=== PATIENT | male | born 1955 | race Caucasian/White ===

== ENCOUNTER 2017-08-30 22:17 | Inpatient (IN) | payer MEDICAID ==
[~2017-08-30] VITALS: Ht 165.1 cm; Wt 50.3 kg
[2017-08-30] MEDS ORDERED: PLEASE ENTER HEIGHT AND WEIGHT MC SCH (22:30)
[2017-08-30] MEDS ORDERED: methylPREDNISolone SOD SUCC 125 MG/2 ML IVP ONE (22:30)
[2017-08-30] MEDS ORDERED: SODIUM CHLORIDE FLUSH 10ML SYR IVF ONE (22:30)
[2017-08-30] MEDS ORDERED: SODIUM CHLORIDE 0.9% 1,000ML IVBOLUS ONE (22:30)
[2017-08-30] MEDS ORDERED: PLEASE ENTER ALLERGIES MC SCH ×2 (22:30)
[2017-08-30 22:43] LABS: HEMATOCRIT 34.1 % (39.2-51.8); HEMOGLOBIN 11.1 g/dL (13.7-18.0); WHITE BLOOD COUNT 11.2 x10^3/uL (3.4-10)
[2017-08-30 22:55] LABS: BLOOD UREA NITROGEN 34 mg/dL (7-18)
[2017-08-30 23:02] LABS: IS PT STATUS REG ER OR PRE ER? YES
[2017-08-30] MEDS ORDERED: ALBUTEROL SULFATE 2.5 MG/3 ML ONE (23:07)
[2017-08-30] MEDS ORDERED: methylPREDNISolone SOD SUCC 125 MG/2 ML ONE (23:13)
[2017-08-31] MEDS ORDERED: ALBUTEROL SULFATE 2.5 MG/3 ML NPPB ONE
[2017-08-31] MEDS ORDERED: AZITHROMYCIN 500 MG in SODIUM CHLORIDE 0.9% 250 ML IV ONE
[2017-08-31] MEDS ORDERED: ALBUTEROL/IPRATROPIUM 2.5MG/0.5MG, 3 ML NPPB PRN (01:30)
[2017-08-31] MEDS ORDERED: hydrALAzine 20 MG/ML, 1ML IVPush PRN (01:30)
[2017-08-31] MEDS ORDERED: GUAIFENESIN/DM 200-20MG, 10ML UDC PO PRN (01:30)
[2017-08-31] MEDS ORDERED: ONDANSETRON 2MG/ML, 2ML IVPush PRN (01:30)
[2017-08-31 01:47] VITALS: BP 125/81
[2017-08-31 02:00] VITALS: BP 125/81
[2017-08-31] MEDS: SODIUM CHLORIDE 0.9% 1,000 ML IV SCH ×2 (02:32→17:20)
[2017-08-31] MEDS: methylPREDNISolone SOD SUCC 125 MG/2 ML IVPush SCH ×4 (02:32→20:03)
[2017-08-31] MEDS: ENOXAPARIN 40 MG/0.4 ML SQ SCH (05:58)
[2017-08-31] MEDS ORDERED: GUAIFENESIN 200 MG TABLET PO SCH (06:00)
[2017-08-31] MEDS: ALBUTEROL/IPRATROPIUM 2.5MG/0.5MG, 3 ML NPPB SCH ×4 (07:12→19:16)
[2017-08-31 07:18] VITALS: BP 107/50
[2017-08-31] MEDS: AZITHROMYCIN 500 MG TABLET PO SCH (09:31)
[2017-08-31] MEDS: FLUTICASONE/VILANTEROL 200-25MCG/INH INH SCH (11:02)
[2017-08-31] MEDS: CEFTRIAXONE PMX 1GM/50ML 50 ML IV SCH (11:09)
[2017-08-31] MEDS: NICOTINE 14MG/24 HR PATCH.TD24 TD SCH (11:53)
[2017-08-31 15:43] VITALS: BP 119/61
[2017-08-31 18:35] VITALS: BP 116/57
[2017-08-31] MEDS: GUAIFENESIN ER 600 MG TABLET PO SCH (20:03)
[2017-09-01] MEDS ORDERED: FAMO-79 PO (00:11)
[2017-09-01] MEDS ORDERED: QUET25TA PO (00:11)
[2017-09-01] MEDS ORDERED: ACAM333T7 PO (00:11)
[2017-09-01] MEDS ORDERED: QUETIAPINE 25MG TABLET PO ONE (00:30)
[2017-09-01] MEDS: ACETAMINOPHEN 325 MG TABLET PO PRN (00:56)
[2017-09-01] MEDS: methylPREDNISolone SOD SUCC 125 MG/2 ML IVPush SCH (00:57)
[2017-09-01 01:24] VITALS: BP 123/63
[2017-09-01] MEDS: SODIUM CHLORIDE 0.9% 1,000 ML IV SCH (04:37)
[2017-09-01] MEDS: ENOXAPARIN 40 MG/0.4 ML SQ SCH (05:31)
[2017-09-01 05:42] LABS: HEMATOCRIT 30.1 % (39.2-51.8); HEMOGLOBIN 9.8 g/dL (13.7-18.0); WHITE BLOOD COUNT 11.7 x10^3/uL (3.4-10)
[2017-09-01 05:46] LABS: BLOOD UREA NITROGEN 25 mg/dL (7-18)
[2017-09-01 07:30] VITALS: BP 131/69
[2017-09-01] MEDS: ALBUTEROL/IPRATROPIUM 2.5MG/0.5MG, 3 ML NPPB SCH ×4 (07:44→20:00)
[2017-09-01] MEDS: GUAIFENESIN ER 600 MG TABLET PO SCH ×2 (08:46→20:38)
[2017-09-01] MEDS: FLUTICASONE/VILANTEROL 200-25MCG/INH INH SCH (08:46)
[2017-09-01] MEDS: FAMOTIDINE 20 MG TABLET PO SCH ×2 (08:47→20:38)
[2017-09-01] MEDS: ACAMPROSATE 333 MG TABLET.DR PO SCH ×3 (08:47→20:38)
[2017-09-01] MEDS: AZITHROMYCIN 500 MG TABLET PO SCH (08:47)
[2017-09-01] MEDS: NICOTINE 14MG/24 HR PATCH.TD24 TD SCH (11:00)
[2017-09-01] MEDS: CEFTRIAXONE PMX 1GM/50ML 50 ML IV SCH (11:19)
[2017-09-01 12:30] LABS: OCCBLD OBC PASS
[2017-09-01 12:44] VITALS: BP 129/55
[2017-09-01 19:25] VITALS: BP 144/81
[2017-09-01] MEDS: QUETIAPINE 25MG TABLET PO SCH (20:38)
[2017-09-02 02:19] VITALS: BP 128/71
[2017-09-02] MEDS: ENOXAPARIN 40 MG/0.4 ML SQ SCH (05:00)
[2017-09-02 05:55] LABS: HEMATOCRIT 36.3 % (39.2-51.8); HEMOGLOBIN 11.6 g/dL (13.7-18.0); WHITE BLOOD COUNT 12.1 x10^3/uL (3.4-10)
[2017-09-02 06:19] LABS: BLOOD UREA NITROGEN 24 mg/dL (7-18)
[2017-09-02 06:36] VITALS: BP 150/82
[2017-09-02] MEDS: ALBUTEROL/IPRATROPIUM 2.5MG/0.5MG, 3 ML NPPB SCH ×4 (07:00→20:45)
[2017-09-02] MEDS: GUAIFENESIN ER 600 MG TABLET PO SCH ×2 (09:51→21:39)
[2017-09-02] MEDS: FLUTICASONE/VILANTEROL 200-25MCG/INH INH SCH (09:51)
[2017-09-02] MEDS: FAMOTIDINE 20 MG TABLET PO SCH ×2 (09:51→21:39)
[2017-09-02] MEDS: CEFTRIAXONE PMX 1GM/50ML 50 ML IV SCH (09:51)
[2017-09-02] MEDS: AZITHROMYCIN 500 MG TABLET PO SCH (09:51)
[2017-09-02] MEDS: ACAMPROSATE 333 MG TABLET.DR PO SCH ×3 (09:51→21:39)
[2017-09-02] MEDS: ACETAMINOPHEN 325 MG TABLET PO PRN ×2 (09:56→17:29)
[2017-09-02] MEDS ORDERED: CEFD300C37 PO (10:25)
[2017-09-02] MEDS ORDERED: AZIT500T5 PO (10:25)
[2017-09-02] MEDS ORDERED: PRED20TA PO (10:25)
[2017-09-02] MEDS: NICOTINE 14MG/24 HR PATCH.TD24 TD SCH (11:33)
[2017-09-02 12:18] VITALS: BP 148/85
[2017-09-02] MEDS ORDERED: PNEUMOCOCCAL 23 VACCINE IM-VACC ONE (15:30)
[2017-09-02 19:05] VITALS: BP 144/77
[2017-09-02] MEDS: QUETIAPINE 25MG TABLET PO SCH (21:39)
[2017-09-03 00:52] VITALS: BP 131/77
[2017-09-03] MEDS: ENOXAPARIN 40 MG/0.4 ML SQ SCH (06:00)
[2017-09-03 06:35] VITALS: BP 146/80
[2017-09-03] MEDS: ALBUTEROL/IPRATROPIUM 2.5MG/0.5MG, 3 ML NPPB SCH ×3 (07:30→15:05)
[2017-09-03 07:36] LABS: HEMATOCRIT 32.1 % (39.2-51.8); HEMOGLOBIN 10.5 g/dL (13.7-18.0); WHITE BLOOD COUNT 7.8 x10^3/uL (3.4-10)
[2017-09-03 07:38] LABS: BLOOD UREA NITROGEN 23 mg/dL (7-18)
[2017-09-03] MEDS: FAMOTIDINE 20 MG TABLET PO SCH (09:31)
[2017-09-03] MEDS: FLUTICASONE/VILANTEROL 200-25MCG/INH INH SCH (09:31)
[2017-09-03] MEDS: GUAIFENESIN ER 600 MG TABLET PO SCH (09:32)
[2017-09-03] MEDS: AZITHROMYCIN 500 MG TABLET PO SCH (09:32)
[2017-09-03] MEDS: ACAMPROSATE 333 MG TABLET.DR PO SCH (09:32)
[2017-09-03] MEDS: CEFTRIAXONE PMX 1GM/50ML 50 ML IV SCH (10:30)
[2017-09-03] MEDS: NICOTINE 14MG/24 HR PATCH.TD24 TD SCH (12:42)
[2017-09-03 12:48] VITALS: BP_SYST 144; BP_SYST 158; BP_DIAS 77; BP_DIAS 83
[2017-09-03] MEDS ORDERED: CEFDINIR 300 MG CAPSULE PO SCH (21:00)
== END 2017-09-03 16:00 | disposition home or self-care (01) | DRG 189 ==
LOC: ED 23:54 → EDIP 08-31 00:26 → SUATTDRO 08-31 01:10 → 4EST 08-31 01:28
PROVIDERS: ADMIT Hospitalist; ATTEND Hospitalist
DX: J96.21 Acute and chronic respiratory failure with hypoxia (principal); Z99.81 Dependence on supplemental oxygen; E44.0 Moderate protein-calorie malnutrition; J44.1 Chronic obstructive pulmonary disease with (acute) exacerbation; Z68.1 Body mass index [BMI] 19.9 or less, adult; D64.9 Anemia, unspecified; F17.210 Nicotine dependence, cigarettes, uncomplicated; T38.0X5A Adverse effect of glucocorticoids and synthetic analogues, initial encounter; D72.829 Elevated white blood cell count, unspecified; F32.9 Major depressive disorder, single episode, unspecified; R79.89 Other specified abnormal findings of blood chemistry; R00.0 Tachycardia, unspecified; Z88.0 Allergy status to penicillin; Z87.01 Personal history of pneumonia (recurrent); Z71.6 Tobacco abuse counseling
CPT/HCPCS: 36415; 71010; 80048; 82040; 82272; 84484; 85025; 87040; 90732; 93005; 94640; 96361; 96374; 96375; J0456; J0696; J1650; J7620; J2930; J7030; J7050; J7512

== ENCOUNTER 2017-09-21 00:45 | Emergency (ER) | payer MEDICAID ==
[~2017-09-21] VITALS: Ht 165.1 cm; Wt 52.0 kg
[~2017-09-21 00:45] MED LIST: ACAM333T7 PO; AZIT500T5 PO; CEFD300C37 PO; FAMO-79 PO; PRED20TA PO; QUET25TA PO
[2017-09-21] MEDS ORDERED: ACETAMINOPHEN 500 MG TABLET ONE (00:58)
[2017-09-21] MEDS ORDERED: ACETAMINOPHEN 325 MG TABLET PO ONE (01:00)
[2017-09-21 02:52] VITALS: BP 129/77
== END 2017-09-21 02:56 | disposition home or self-care (01) ==
LOC: ED 01:12
DX: G43.C0 Periodic headache syndromes in child or adult, not intractable (principal); J44.9 Chronic obstructive pulmonary disease, unspecified; Z86.73 Personal history of transient ischemic attack (TIA), and cerebral infarction without residual deficits
CPT/HCPCS: 70450; 99284

== ENCOUNTER 2017-09-22 11:18 | Emergency (ER) | payer MEDICAID ==
[~2017-09-22] VITALS: Ht 165.1 cm; Wt 50.0 kg
[2017-09-22 12:03] LABS: BLOOD UREA NITROGEN 19 mg/dL (7-18); HEMOGLOBIN 11.4 g/dL (13.7-18.0); WHITE BLOOD COUNT 5.1 x10^3/uL (3.4-10)
[2017-09-22 12:14] LABS: IS PT STATUS REG ER OR PRE ER? YES
[2017-09-22 13:04] VITALS: BP 144/79
== END 2017-09-22 14:59 | disposition home or self-care (01) ==
LOC: ED 11:21
DX: J44.1 Chronic obstructive pulmonary disease with (acute) exacerbation (principal); D64.9 Anemia, unspecified; Z88.0 Allergy status to penicillin
CPT/HCPCS: 36415; 71010; 80048; 82040; 83880; 84484; 85025; 93005; 99285; J7512

== ENCOUNTER 2017-10-04 19:58 | Inpatient (IN) | payer MEDICAID ==
[~2017-10-04] VITALS: Ht 165.1 cm; Wt 54.0 kg
[2017-10-04] MEDS ORDERED: ALBUTEROL SULFATE 2.5 MG/3 ML ONE ×2 (20:04→22:10)
[2017-10-04] MEDS ORDERED: methylPREDNISolone SOD SUCC 125 MG/2 ML ONE (20:24)
[2017-10-04] MEDS ORDERED: SODIUM CHLORIDE FLUSH 10ML SYR IVF ONE (20:30)
[2017-10-04] MEDS ORDERED: ALBUTEROL SULFATE 2.5 MG/3 ML NPPB ONE ×2 (20:30→23:00)
[2017-10-04] MEDS ORDERED: SODIUM CHLORIDE 0.9% 1,000ML IVBOLUS ONE (20:30)
[2017-10-04 20:50] LABS: BLOOD UREA NITROGEN 21 mg/dL (7-18)
[2017-10-04] MEDS: methylPREDNISolone SOD SUCC 125 MG/2 ML IVPush SCH ×3 (20:59→23:30)
[2017-10-04 21:37] LABS: WHITE BLOOD COUNT 12.1 x10^3/uL (3.4-10)
[2017-10-04 22:18] LABS: ABG COLLECTION SITE LEFT RADIAL; COLLATERAL CIRCULATION TESTING NORMAL
[2017-10-04] MEDS ORDERED: ALBUTEROL/IPRATROPIUM 2.5MG/0.5MG, 3 ML NPPB ONE (22:30)
[2017-10-04] MEDS ORDERED: NS + 20MEQ KCL 1,000 ML IV SCH (23:27)
[2017-10-04] MEDS ORDERED: GUAIFENESIN/DM 200-20MG, 10ML UDC PO PRN (23:30)
[2017-10-04] MEDS ORDERED: ACETAMINOPHEN 325 MG TABLET PO PRN (23:30)
[2017-10-04] MEDS ORDERED: DOCUSATE 100 MG CAPSULE PO PRN (23:30)
[2017-10-04] MEDS ORDERED: ONDANSETRON 2MG/ML, 2ML IVPush PRN (23:30)
[2017-10-04] MEDS: AZITHROMYCIN 500 MG in SODIUM CHLORIDE 0.9% 250 ML IV SCH (23:30)
[2017-10-04] MEDS ORDERED: POLYETHYLENE GLYCOL 17 GM PACKET PO PRN (23:30)
[2017-10-05] MEDS ORDERED: ENOXAPARIN 40 MG/0.4 ML ONE (00:12)
[2017-10-05] MEDS ORDERED: CEFTRIAXONE PMX 1GM/50ML 50 ML ONE (00:12)
[2017-10-05] MEDS ORDERED: NS + 20MEQ KCL 1,000 ML IV ONE (00:12)
[2017-10-05] MEDS: ENOXAPARIN 40 MG/0.4 ML SQ SCH (00:21)
[2017-10-05] MEDS: CEFTRIAXONE PMX 1GM/50ML 50 ML IV SCH (00:21)
[2017-10-05 00:46] LABS: ABG COLLECTION SITE ARTERIAL LINE
[2017-10-05] MEDS: NICOTINE 7 MG/24 HR PATCH.TD24 TD SCH (00:59)
[2017-10-05] MEDS ORDERED: ALBUTEROL/IPRATROPIUM 2.5MG/0.5MG, 3 ML ONE (01:54)
[2017-10-05] MEDS: POTASSIUM CHLORIDE 20 MEQ in SODIUM CHLORIDE 0.9% 1,000 ML IV SCH (03:13)
[2017-10-05 03:19] VITALS: BP 134/67
[2017-10-05] MEDS ORDERED: ALBUTEROL/IPRATROPIUM 2.5MG/0.5MG, 3 ML NPPB PRN (04:30)
[2017-10-05 05:55] VITALS: BP 94/55
[2017-10-05] MEDS: ALBUTEROL/IPRATROPIUM 2.5MG/0.5MG, 3 ML NPPB SCH ×5 (06:55→22:00)
[2017-10-05] MEDS: methylPREDNISolone SOD SUCC 125 MG/2 ML IVPush SCH ×3 (08:01→19:43)
[2017-10-05] MEDS: PANTOPROZOLE 40MG TABLET PO SCH (08:01)
[2017-10-05 09:11] LABS: ABG COLLECTION SITE RIGHT RADIAL; COLLATERAL CIRCULATION TESTING NORMAL
[2017-10-05] MEDS ORDERED: FUROSEMIDE 20 MG/2 ML IV ONE (09:30)
[2017-10-05] MEDS: HYDROcodone/APAP 5/325 TABLET PO PRN ×2 (13:42→21:01)
[2017-10-05] MEDS: QUETIAPINE 25MG TABLET PO SCH (21:01)
[2017-10-06] MEDS: CEFTRIAXONE PMX 1GM/50ML 50 ML IV SCH ×2 (00:05→23:52)
[2017-10-06] MEDS: NICOTINE 7 MG/24 HR PATCH.TD24 TD SCH ×2 (00:05→23:53)
[2017-10-06] MEDS: ENOXAPARIN 40 MG/0.4 ML SQ SCH ×2 (00:05→23:52)
[2017-10-06] MEDS: POTASSIUM CHLORIDE 20 MEQ in SODIUM CHLORIDE 0.9% 1,000 ML IV SCH (00:07)
[2017-10-06] MEDS: methylPREDNISolone SOD SUCC 125 MG/2 ML IVPush SCH ×4 (01:26→21:09)
[2017-10-06] MEDS: AZITHROMYCIN 500 MG in SODIUM CHLORIDE 0.9% 250 ML IV SCH (01:27)
[2017-10-06 04:10] LABS: HEMATOCRIT 30.8 % (39.2-51.8); HEMOGLOBIN 9.9 g/dL (13.7-18.0); WHITE BLOOD COUNT 14.2 x10^3/uL (3.4-10)
[2017-10-06 04:19] LABS: ASPARTATE AMINO TRANSFERASE 10 U/L (15-37); BLOOD UREA NITROGEN 22 mg/dL (7-18)
[2017-10-06] MEDS: HYDROcodone/APAP 5/325 TABLET PO PRN ×4 (04:49→22:51)
[2017-10-06 04:57] VITALS: BP 124/107
[2017-10-06] MEDS: ALBUTEROL/IPRATROPIUM 2.5MG/0.5MG, 3 ML NPPB SCH ×5 (07:10→22:23)
[2017-10-06] MEDS: PANTOPROZOLE 40MG TABLET PO SCH (07:30)
[2017-10-06] MEDS ORDERED: LIDOCAINE 1%, 20ML ONE (08:56)
[2017-10-06] MEDS ORDERED: MIDAZOLAM 1 MG/ML, 5ML ONE (08:58)
[2017-10-06] MEDS ORDERED: FENTANYL PF 100 MCG/2ML ONE (08:58)
[2017-10-06] MEDS ORDERED: NALOXONE 1 MG/ML, 2ML ONE (08:59)
[2017-10-06] MEDS ORDERED: FLUMAZENIL 0.1 MG/1 ML, 5ML ONE (08:59)
[2017-10-06] MEDS: QUETIAPINE 25MG TABLET PO SCH (21:09)
[2017-10-07] MEDS: AZITHROMYCIN 500 MG in SODIUM CHLORIDE 0.9% 250 ML IV SCH (00:50)
[2017-10-07] MEDS: methylPREDNISolone SOD SUCC 125 MG/2 ML IVPush SCH ×4 (00:51→21:35)
[2017-10-07 04:00] VITALS: BP 102/51
[2017-10-07] MEDS: ALBUTEROL/IPRATROPIUM 2.5MG/0.5MG, 3 ML NPPB SCH ×5 (06:40→21:20)
[2017-10-07] MEDS: PANTOPROZOLE 40MG TABLET PO SCH (08:27)
[2017-10-07] MEDS: LEVOFLOXACIN/PMX 750MG/150ML 150 ML IV SCH (14:46)
[2017-10-07] MEDS: HYDROcodone/APAP 5/325 TABLET PO PRN ×2 (16:03→21:54)
[2017-10-07 19:00] VITALS: BP 138/78
[2017-10-07] MEDS: LORazepam 1MG TABLET PO PRN (21:50)
[2017-10-08] MEDS: ENOXAPARIN 40 MG/0.4 ML SQ SCH (00:23)
[2017-10-08 03:15] VITALS: BP 136/78
[2017-10-08] MEDS: methylPREDNISolone SOD SUCC 125 MG/2 ML IVPush SCH ×3 (04:03→13:19)
[2017-10-08 04:51] LABS: HEMATOCRIT 34.8 % (39.2-51.8); HEMOGLOBIN 11.3 g/dL (13.7-18.0); WHITE BLOOD COUNT 19.1 x10^3/uL (3.4-10)
[2017-10-08 06:40] LABS: DIFF TOTAL CELLS COUNTED 100 CELL DIFF
[2017-10-08 06:42] LABS: VERIFY COUNTS? YES
[2017-10-08 06:43] LABS: ANISOCYTOSIS 1+; POLYCHROMASIA 1+
[2017-10-08 06:57] VITALS: BP 114/60
[2017-10-08] MEDS: ALBUTEROL/IPRATROPIUM 2.5MG/0.5MG, 3 ML NPPB SCH ×4 (07:00→20:00)
[2017-10-08] MEDS: NICOTINE 7 MG/24 HR PATCH.TD24 TD SCH (08:35)
[2017-10-08] MEDS: PANTOPROZOLE 40MG TABLET PO SCH (08:37)
[2017-10-08 13:02] VITALS: BP 140/70
[2017-10-08] MEDS: LINEZOLID PMX 600MG/300ML 300 ML IV SCH (13:19)
[2017-10-08] MEDS: LEVOFLOXACIN/PMX 750MG/150ML 150 ML IV SCH (15:32)
[2017-10-08] MEDS: HYDROcodone/APAP 5/325 TABLET PO PRN (18:40)
[2017-10-08] MEDS: LORazepam 1MG TABLET PO PRN (18:40)
[2017-10-08 20:26] VITALS: BP 140/80
[2017-10-09] MEDS: LINEZOLID PMX 600MG/300ML 300 ML IV SCH ×2 (01:03→13:41)
[2017-10-09] MEDS: ENOXAPARIN 40 MG/0.4 ML SQ SCH ×2 (01:03→23:41)
[2017-10-09] MEDS: HYDROcodone/APAP 5/325 TABLET PO PRN ×4 (01:23→20:06)
[2017-10-09] MEDS: LORazepam 1MG TABLET PO PRN ×2 (01:23→20:23)
[2017-10-09 02:35] VITALS: BP_SYST 144; BP_SYST 153; BP_DIAS 81; BP_DIAS 89
[2017-10-09 05:25] LABS: HEMATOCRIT 32.8 % (39.2-51.8); HEMOGLOBIN 10.7 g/dL (13.7-18.0); WHITE BLOOD COUNT 12.4 x10^3/uL (3.4-10)
[2017-10-09] MEDS: ALBUTEROL/IPRATROPIUM 2.5MG/0.5MG, 3 ML NPPB SCH ×4 (07:00→20:40)
[2017-10-09 07:19] VITALS: BP 152/79
[2017-10-09] MEDS: PANTOPROZOLE 40MG TABLET PO SCH (08:04)
[2017-10-09] MEDS: predniSONE 50MG TABLET PO SCH (08:04)
[2017-10-09] MEDS: NICOTINE 7 MG/24 HR PATCH.TD24 TD SCH (08:07)
[2017-10-09 13:41] VITALS: BP 146/77
[2017-10-09] MEDS: LEVOFLOXACIN/PMX 750MG/150ML 150 ML IV SCH (15:58)
[2017-10-09 19:12] VITALS: BP 126/60
[2017-10-10] MEDS: HYDROcodone/APAP 5/325 TABLET PO PRN ×4 (01:36→21:15)
[2017-10-10] MEDS: LORazepam 1MG TABLET PO PRN ×3 (01:36→21:15)
[2017-10-10 01:38] VITALS: BP 121/63
[2017-10-10] MEDS: LINEZOLID PMX 600MG/300ML 300 ML IV SCH ×2 (01:45→14:54)
[2017-10-10] MEDS: ALBUTEROL/IPRATROPIUM 2.5MG/0.5MG, 3 ML NPPB SCH ×4 (07:00→17:59)
[2017-10-10 07:31] VITALS: BP 119/69
[2017-10-10 09:38] LABS: ABG COLLECTION SITE RIGHT RADIAL; COLLATERAL CIRCULATION TESTING NORMAL; HEMATOCRIT 35.4 % (39.2-51.8); HEMOGLOBIN 11.4 g/dL (13.7-18.0); WHITE BLOOD COUNT 10.4 x10^3/uL (3.4-10)
[2017-10-10 09:50] LABS: ASPARTATE AMINO TRANSFERASE 8 U/L (15-37); BLOOD UREA NITROGEN 26 mg/dL (7-18)
[2017-10-10] MEDS: PANTOPROZOLE 40MG TABLET PO SCH (10:32)
[2017-10-10] MEDS: predniSONE 50MG TABLET PO SCH (10:32)
[2017-10-10] MEDS: NICOTINE 7 MG/24 HR PATCH.TD24 TD SCH (10:32)
[2017-10-10 11:34] LABS: DIFF TOTAL CELLS COUNTED 100 CELL DIFF
[2017-10-10 11:38] LABS: VERIFY COUNTS? YES
[2017-10-10 11:40] LABS: ANISOCYTOSIS 1+; OVALOCYTES 1+; POLYCHROMASIA 1+
[2017-10-10 16:30] VITALS: BP 129/72
[2017-10-10] MEDS: LEVOFLOXACIN/PMX 750MG/150ML 150 ML IV SCH (16:48)
[2017-10-10 21:00] VITALS: BP 117/69
[2017-10-11] MEDS: ENOXAPARIN 40 MG/0.4 ML SQ SCH (00:19)
[2017-10-11 01:22] VITALS: BP 131/73
[2017-10-11] MEDS: LINEZOLID PMX 600MG/300ML 300 ML IV SCH ×2 (01:43→13:17)
[2017-10-11 05:18] LABS: HEMOGLOBIN 10.7 g/dL (13.7-18.0); WHITE BLOOD COUNT 10.9 x10^3/uL (3.4-10)
[2017-10-11 05:31] LABS: ASPARTATE AMINO TRANSFERASE 11 U/L (15-37); BLOOD UREA NITROGEN 27 mg/dL (7-18)
[2017-10-11 07:01] LABS: DIFF TOTAL CELLS COUNTED 100 CELL DIFF
[2017-10-11 07:06] LABS: ANISOCYTOSIS 1+; OVALOCYTES 1+; POLYCHROMASIA 1+; VERIFY COUNTS? YES
[2017-10-11] MEDS: ALBUTEROL/IPRATROPIUM 2.5MG/0.5MG, 3 ML NPPB SCH ×4 (07:45→20:00)
[2017-10-11] MEDS: NICOTINE 7 MG/24 HR PATCH.TD24 TD SCH (09:00)
[2017-10-11] MEDS: HYDROcodone/APAP 5/325 TABLET PO PRN ×4 (09:00→22:14)
[2017-10-11] MEDS: PANTOPROZOLE 40MG TABLET PO SCH (09:00)
[2017-10-11 11:11] VITALS: BP 128/75
[2017-10-11] MEDS ORDERED: LIDOCAINE 1%, 20ML ONE (12:04)
[2017-10-11 13:04] VITALS: BP 127/72
[2017-10-11] MEDS: LEVOFLOXACIN/PMX 750MG/150ML 150 ML IV SCH (16:37)
[2017-10-11] MEDS: LORazepam 1MG TABLET PO PRN ×2 (17:46→22:14)
[2017-10-11 20:27] VITALS: BP 129/73
[2017-10-12] MEDS: ENOXAPARIN 40 MG/0.4 ML SQ SCH ×2 (00:58→23:41)
[2017-10-12] MEDS: LINEZOLID PMX 600MG/300ML 300 ML IV SCH ×2 (01:00→14:09)
[2017-10-12 02:12] VITALS: BP 113/51
[2017-10-12] MEDS: HYDROcodone/APAP 5/325 TABLET PO PRN ×5 (06:05→22:06)
[2017-10-12] MEDS: LORazepam 1MG TABLET PO PRN ×2 (06:05→21:21)
[2017-10-12] MEDS: ALBUTEROL/IPRATROPIUM 2.5MG/0.5MG, 3 ML NPPB SCH ×4 (07:00→20:00)
[2017-10-12 07:10] VITALS: BP 133/80
[2017-10-12] MEDS: NICOTINE 7 MG/24 HR PATCH.TD24 TD SCH (08:30)
[2017-10-12] MEDS: PANTOPROZOLE 40MG TABLET PO SCH (08:30)
[2017-10-12] MEDS: morphine SULFATE 10 MG/ML, 1ML IVPush PRN ×2 (14:50→21:19)
[2017-10-12] MEDS: LEVOFLOXACIN/PMX 750MG/150ML 150 ML IV SCH (18:01)
[2017-10-12 19:37] VITALS: BP 125/65
[2017-10-13 01:55] VITALS: BP 131/75
[2017-10-13] MEDS: LINEZOLID PMX 600MG/300ML 300 ML IV SCH ×2 (02:36→12:52)
[2017-10-13] MEDS: HYDROcodone/APAP 5/325 TABLET PO PRN ×4 (02:36→23:33)
[2017-10-13] MEDS: morphine SULFATE 10 MG/ML, 1ML IVPush PRN ×2 (04:21→12:51)
[2017-10-13] MEDS: LORazepam 1MG TABLET PO PRN ×3 (04:27→18:01)
[2017-10-13 08:00] VITALS: BP 121/66
[2017-10-13] MEDS: ALBUTEROL/IPRATROPIUM 2.5MG/0.5MG, 3 ML NPPB SCH ×4 (09:05→20:30)
[2017-10-13] MEDS: PANTOPROZOLE 40MG TABLET PO SCH (09:18)
[2017-10-13] MEDS: NICOTINE 7 MG/24 HR PATCH.TD24 TD SCH (09:20)
[2017-10-13 14:00] VITALS: BP 121/76
[2017-10-13] MEDS: LEVOFLOXACIN/PMX 750MG/150ML 150 ML IV SCH (15:46)
[2017-10-13 19:00] VITALS: BP 121/61
[2017-10-13] MEDS: ENOXAPARIN 40 MG/0.4 ML SQ SCH (23:33)
[2017-10-14] MEDS: LINEZOLID PMX 600MG/300ML 300 ML IV SCH (01:09)
[2017-10-14 02:04] VITALS: BP 128/71
[2017-10-14] MEDS: HYDROcodone/APAP 5/325 TABLET PO PRN ×2 (03:34→13:51)
[2017-10-14] MEDS: morphine SULFATE 10 MG/ML, 1ML IVPush PRN ×4 (03:44→21:40)
[2017-10-14] MEDS: ALBUTEROL/IPRATROPIUM 2.5MG/0.5MG, 3 ML NPPB SCH ×4 (07:35→20:13)
[2017-10-14 07:37] VITALS: BP 121/80
[2017-10-14] MEDS: PANTOPROZOLE 40MG TABLET PO SCH (07:50)
[2017-10-14] MEDS: NICOTINE 7 MG/24 HR PATCH.TD24 TD SCH (07:50)
[2017-10-14] MEDS: LORazepam 1MG TABLET PO PRN ×2 (13:51→21:40)
[2017-10-14 14:01] VITALS: BP 116/69
[2017-10-14 20:04] VITALS: BP 136/74
[2017-10-14] MEDS: ENOXAPARIN 40 MG/0.4 ML SQ SCH (22:39)
[2017-10-15 01:49] VITALS: BP 129/79
[2017-10-15] MEDS: morphine SULFATE 10 MG/ML, 1ML IVPush PRN ×2 (05:17→20:18)
[2017-10-15] MEDS ORDERED: BUPIVACAINE/PF 0.5% ONE ×2 (07:05→13:20)
[2017-10-15] MEDS ORDERED: EPINEPHRINE 1 MG/ML, 1ML ONE ×2 (07:05→13:20)
[2017-10-15 07:12] VITALS: BP 132/76
[2017-10-15] MEDS: ALBUTEROL/IPRATROPIUM 2.5MG/0.5MG, 3 ML NPPB SCH ×4 (07:44→16:28)
[2017-10-15] MEDS: PANTOPROZOLE 40MG TABLET PO SCH (08:11)
[2017-10-15] MEDS: LORazepam 1MG TABLET PO PRN (08:12)
[2017-10-15] MEDS: NICOTINE 7 MG/24 HR PATCH.TD24 TD SCH (08:16)
[2017-10-15] MEDS ORDERED: MORPHINE SULFATE 4 MG/ML, 1ML ONE (10:52)
[2017-10-15] MEDS: MORPHINE SULFATE 4 MG/ML, 1ML IVPush PRN (10:57)
[2017-10-15] MEDS ORDERED: MIDAZOLAM 1 MG/ML, 2ML ONE (13:29)
[2017-10-15] MEDS ORDERED: FENTANYL PF 250 MCG/5ML ONE (13:29)
[2017-10-15] MEDS ORDERED: ALBUTEROL SULFATE 200 PUFFS/8.5 GR INH ONE (14:36)
[2017-10-15] MEDS ORDERED: ROCURONIUM 10 MG/ML,10ML ONE (14:36)
[2017-10-15] MEDS ORDERED: PROPOFOL 10 MG/ML, 20ML ONE (14:36)
[2017-10-15] MEDS ORDERED: SUCCINYLCHOLINE 20 MG/ML, 10ML ONE (14:36)
[2017-10-15] MEDS ORDERED: BUPIVACAINE/PF-EPI 0.25% 1:200K INFIL ONE (15:14)
[2017-10-15] MEDS ORDERED: TALC 30 GM AERO.PWD INTRAPL ONE (15:42)
[2017-10-15] MEDS ORDERED: FENTANYL PF 100 MCG/2ML ONE ×3 (16:30→17:53)
[2017-10-15] MEDS ORDERED: MIDAZOLAM 1 MG/ML, 5ML ONE (17:38)
[2017-10-15] MEDS: FENTANYL PF 100 MCG/2ML IV PRN ×3 (17:49→18:41)
[2017-10-15] MEDS: MIDAZOLAM 1 MG/ML, 2ML IV PRN ×2 (17:49→18:00)
[2017-10-15] MEDS ORDERED: HYDROmorphone 1 MG/ML, 1ML IV PRN (18:00)
[2017-10-15] MEDS ORDERED: hydrALAzine 20 MG/ML, 1ML IV PRN (18:00)
[2017-10-15] MEDS ORDERED: LABETALOL 5MG/ML, 20ML IV PRN (18:00)
[2017-10-15] MEDS ORDERED: MEPERIDINE/PF 50 MG/ML ONE (18:02)
[2017-10-15] MEDS ORDERED: PROPOFOL 100 ML IV PRN ×2 (18:30→20:33)
[2017-10-15] MEDS ORDERED: PHARMACY MAY ADJ FOR RENAL FX MC SCH (21:00)
[2017-10-15] MEDS ORDERED: LIDOCAINE-MPF 1%, 2ML ENDO PRN (21:00)
[2017-10-16] MEDS: ACETAMINOPHEN 500 MG TABLET PO SCH ×5 (00:19→23:20)
[2017-10-16] MEDS: ENOXAPARIN 40 MG/0.4 ML SQ SCH ×2 (00:19→16:00)
[2017-10-16] MEDS ORDERED: NOREPINEPHRINE 1 MG/ML, 4ML ONE (02:35)
[2017-10-16] MEDS ORDERED: NOREPINEPHRINE 4 MG in SODIUM CHLORIDE 0.9% 246 ML IV PRN (03:00)
[2017-10-16] MEDS ORDERED: SODIUM CHLORIDE 0.9% 1,000ML IVBOLUS ONE (03:00)
[2017-10-16] MEDS: ALBUTEROL/IPRATROPIUM 2.5MG/0.5MG, 3 ML NPPB SCH ×4 (03:31→18:29)
[2017-10-16 04:55] LABS: BLOOD UREA NITROGEN 19 mg/dL (7-18)
[2017-10-16 05:05] LABS: HEMATOCRIT 27.8 % (39.2-51.8); HEMOGLOBIN 9.1 g/dL (13.7-18.0); WHITE BLOOD COUNT 15.2 x10^3/uL (3.4-10)
[2017-10-16 05:43] LABS: ABG COLLECTION SITE RIGHT RADIAL; COLLATERAL CIRCULATION TESTING NORMAL
[2017-10-16] MEDS: OXYcodone IR 5MG TABLET PO PRN ×2 (08:35→23:20)
[2017-10-16] MEDS: NICOTINE 7 MG/24 HR PATCH.TD24 TD SCH (09:11)
[2017-10-16] MEDS ORDERED: MAGNESIUM SULFATE PMX 4GM/100M 100 ML IVPB ONE (09:30)
[2017-10-16] MEDS: PANTOPRAZOLE 40 MG IV IVPush SCH (09:55)
[2017-10-17] MEDS: ALBUTEROL/IPRATROPIUM 2.5MG/0.5MG, 3 ML INLINE SCH ×5 (04:30→20:30)
[2017-10-17 04:35] LABS: ABG COLLECTION SITE RIGHT BRACHIAL
[2017-10-17] MEDS: MORPHINE SULFATE 4 MG/ML, 1ML IVPush PRN ×3 (04:46→19:28)
[2017-10-17 06:13] LABS: HEMATOCRIT 25.8 % (39.2-51.8); HEMOGLOBIN 8.5 g/dL (13.7-18.0)
[2017-10-17 06:20] LABS: BLOOD UREA NITROGEN 15 mg/dL (7-18)
[2017-10-17 06:23] LABS: ASPARTATE AMINO TRANSFERASE 16 U/L (15-37)
[2017-10-17] MEDS: ACETAMINOPHEN 500 MG TABLET PO SCH ×4 (06:39→23:04)
[2017-10-17] MEDS ORDERED: OXYcodone IR 5MG TABLET ONE (09:23)
[2017-10-17] MEDS: PANTOPRAZOLE 40 MG IV IVPush SCH (09:33)
[2017-10-17] MEDS: OXYcodone IR 5MG TABLET PO PRN ×3 (09:33→23:04)
[2017-10-17] MEDS: NICOTINE 7 MG/24 HR PATCH.TD24 TD SCH (09:34)
[2017-10-17] MEDS: POTASSIUM CHLORIDE 10% 40 MEQ/30 ML UDC PO SCH ×2 (09:34→23:03)
[2017-10-17] MEDS: morphine SULFATE 10 MG/ML, 1ML IVPush PRN (14:14)
[2017-10-17] MEDS: ENOXAPARIN 40 MG/0.4 ML SQ SCH (16:05)
[2017-10-18] MEDS: ALBUTEROL/IPRATROPIUM 2.5MG/0.5MG, 3 ML INLINE SCH ×4 (00:30→10:30)
[2017-10-18 04:35] LABS: ABG COLLECTION SITE RIGHT RADIAL; COLLATERAL CIRCULATION TESTING NORMAL
[2017-10-18 04:37] LABS: HEMATOCRIT 24.2 % (39.2-51.8); HEMOGLOBIN 8.1 g/dL (13.7-18.0)
[2017-10-18] MEDS ORDERED: ACETAMINOPHEN 325 MG TABLET ONE ×2 (05:10→23:34)
[2017-10-18] MEDS: OXYcodone IR 5MG TABLET PO PRN ×4 (05:13→23:38)
[2017-10-18] MEDS: ACETAMINOPHEN 500 MG TABLET PO SCH ×4 (05:14→23:39)
[2017-10-18 07:05] LABS: BLOOD UREA NITROGEN 15 mg/dL (7-18)
[2017-10-18] MEDS: PANTOPRAZOLE 40 MG IV IVPush SCH (09:04)
[2017-10-18] MEDS: NICOTINE 7 MG/24 HR PATCH.TD24 TD SCH (09:13)
[2017-10-18] MEDS ORDERED: ALBUTEROL/IPRATROPIUM 2.5MG/0.5MG, 3 ML NPPB PRN (14:00)
[2017-10-18] MEDS: ALBUTEROL/IPRATROPIUM 2.5MG/0.5MG, 3 ML NPPB SCH ×2 (14:45→19:09)
[2017-10-18] MEDS: ENOXAPARIN 40 MG/0.4 ML SQ SCH (18:01)
[2017-10-19 04:43] LABS: ABG COLLECTION SITE RIGHT RADIAL; COLLATERAL CIRCULATION TESTING NORMAL
[2017-10-19 05:35] VITALS: BP 113/59
[2017-10-19] MEDS: ACETAMINOPHEN 500 MG TABLET PO SCH ×4 (05:49→23:38)
[2017-10-19] MEDS: OXYcodone IR 5MG TABLET PO PRN ×3 (05:49→23:38)
[2017-10-19] MEDS: ALBUTEROL/IPRATROPIUM 2.5MG/0.5MG, 3 ML NPPB SCH ×4 (07:00→20:15)
[2017-10-19 07:02] LABS: HEMATOCRIT 26.4 % (39.2-51.8); HEMOGLOBIN 8.6 g/dL (13.7-18.0); WHITE BLOOD COUNT 9.2 x10^3/uL (3.4-10)
[2017-10-19] MEDS: PANTOPRAZOLE 40 MG IV IVPush SCH (07:47)
[2017-10-19] MEDS: NICOTINE 7 MG/24 HR PATCH.TD24 TD SCH (10:19)
[2017-10-19] MEDS: morphine SULFATE 10 MG/ML, 1ML IVPush PRN ×2 (11:07→11:19)
[2017-10-19 12:20] VITALS: BP 129/84
[2017-10-19] MEDS: ENOXAPARIN 40 MG/0.4 ML SQ SCH (17:31)
[2017-10-19 19:08] VITALS: BP 127/85
[2017-10-20 03:03] VITALS: BP 134/87
[2017-10-20] MEDS: OXYcodone IR 5MG TABLET PO PRN ×2 (05:41→17:51)
[2017-10-20] MEDS: ACETAMINOPHEN 500 MG TABLET PO SCH ×4 (05:42→23:33)
[2017-10-20 05:45] LABS: HEMATOCRIT 26.7 % (39.2-51.8); HEMOGLOBIN 8.8 g/dL (13.7-18.0); WHITE BLOOD COUNT 8.3 x10^3/uL (3.4-10)
[2017-10-20 06:14] LABS: ANISOCYTOSIS 1+
[2017-10-20 06:15] LABS: OVALOCYTES 1+; POLYCHROMASIA 1+
[2017-10-20 06:43] VITALS: BP 124/78
[2017-10-20] MEDS: ALBUTEROL/IPRATROPIUM 2.5MG/0.5MG, 3 ML NPPB SCH ×4 (07:00→19:29)
[2017-10-20] MEDS: NICOTINE 7 MG/24 HR PATCH.TD24 TD SCH (07:44)
[2017-10-20 13:36] VITALS: BP 146/82
[2017-10-20] MEDS: ENOXAPARIN 40 MG/0.4 ML SQ SCH (17:51)
[2017-10-20 21:10] VITALS: BP 101/66
[2017-10-21 02:13] VITALS: BP 114/72
[2017-10-21] MEDS: OXYcodone IR 5MG TABLET PO PRN ×3 (02:16→22:38)
[2017-10-21 05:29] LABS: HEMATOCRIT 26.5 % (39.2-51.8); HEMOGLOBIN 8.8 g/dL (13.7-18.0); WHITE BLOOD COUNT 9.4 x10^3/uL (3.4-10)
[2017-10-21 06:08] LABS: DIFF TOTAL CELLS COUNTED 100 CELL DIFF
[2017-10-21 06:12] LABS: ANISOCYTOSIS 1+; OVALOCYTES 1+; POLYCHROMASIA 1+; VERIFY COUNTS? YES
[2017-10-21] MEDS: ACETAMINOPHEN 500 MG TABLET PO SCH ×3 (06:34→17:16)
[2017-10-21] MEDS: ALBUTEROL/IPRATROPIUM 2.5MG/0.5MG, 3 ML NPPB SCH ×4 (07:15→20:00)
[2017-10-21] MEDS: FAMOTIDINE 20 MG TABLET PO SCH ×2 (07:55→22:38)
[2017-10-21] MEDS: NICOTINE 7 MG/24 HR PATCH.TD24 TD SCH (07:56)
[2017-10-21 08:00] VITALS: BP 106/70
[2017-10-21 08:31] LABS: HEMOGLOBIN 8.8 g/dL (13.7-18.0); WHITE BLOOD COUNT 8.7 x10^3/uL (3.4-10)
[2017-10-21 08:39] LABS: BLOOD UREA NITROGEN 23 mg/dL (7-18)
[2017-10-21 08:44] LABS: ASPARTATE AMINO TRANSFERASE 16 U/L (15-37)
[2017-10-21 08:59] LABS: DIFF TOTAL CELLS COUNTED 100 CELL DIFF
[2017-10-21 09:02] LABS: ANISOCYTOSIS 1+; OVALOCYTES 1+; POLYCHROMASIA 1+; VERIFY COUNTS? YES
[2017-10-21 12:39] VITALS: BP 107/67
[2017-10-21] MEDS: ENOXAPARIN 40 MG/0.4 ML SQ SCH (17:16)
[2017-10-21 19:25] VITALS: BP 119/75
[2017-10-22] MEDS: ACETAMINOPHEN 500 MG TABLET PO SCH ×5 (00:14→23:34)
[2017-10-22 00:26] VITALS: BP 121/76
[2017-10-22 05:12] LABS: HEMATOCRIT 25.5 % (39.2-51.8); HEMOGLOBIN 8.4 g/dL (13.7-18.0); WHITE BLOOD COUNT 9.9 x10^3/uL (3.4-10)
[2017-10-22 05:20] LABS: BLOOD UREA NITROGEN 24 mg/dL (7-18)
[2017-10-22 05:43] LABS: DIFF TOTAL CELLS COUNTED 100 CELL DIFF
[2017-10-22 05:45] LABS: ANISOCYTOSIS 1+; HYPOCHROMIA 1+; POLYCHROMASIA 1+; VERIFY COUNTS? YES
[2017-10-22 05:46] LABS: OVALOCYTES 1+
[2017-10-22] MEDS: ALBUTEROL/IPRATROPIUM 2.5MG/0.5MG, 3 ML NPPB SCH ×4 (06:50→20:50)
[2017-10-22 08:00] VITALS: BP 120/70
[2017-10-22] MEDS: NICOTINE 7 MG/24 HR PATCH.TD24 TD SCH (08:57)
[2017-10-22] MEDS: FAMOTIDINE 20 MG TABLET PO SCH ×2 (08:57→23:34)
[2017-10-22] MEDS: OXYcodone IR 5MG TABLET PO PRN ×2 (09:04→17:36)
[2017-10-22 13:15] VITALS: BP 97/60
[2017-10-22] MEDS: ENOXAPARIN 40 MG/0.4 ML SQ SCH (17:48)
[2017-10-22 20:03] VITALS: BP 121/76
[2017-10-23] MEDS: OXYcodone IR 5MG TABLET PO PRN ×2 (00:54→09:28)
[2017-10-23 02:10] VITALS: BP 114/72
[2017-10-23 05:37] LABS: HEMATOCRIT 25.6 % (39.2-51.8); HEMOGLOBIN 8.4 g/dL (13.7-18.0); WHITE BLOOD COUNT 8.6 x10^3/uL (3.4-10)
[2017-10-23 05:47] LABS: BLOOD UREA NITROGEN 26 mg/dL (7-18)
[2017-10-23 06:15] LABS: DIFF TOTAL CELLS COUNTED 100 CELL DIFF
[2017-10-23 06:19] LABS: ANISOCYTOSIS 1+; VERIFY COUNTS? YES
[2017-10-23 06:20] LABS: OVALOCYTES 1+; POLYCHROMASIA 1+
[2017-10-23] MEDS: ACETAMINOPHEN 500 MG TABLET PO SCH ×4 (06:37→23:52)
[2017-10-23] MEDS: ALBUTEROL/IPRATROPIUM 2.5MG/0.5MG, 3 ML NPPB SCH ×4 (07:00→19:20)
[2017-10-23] MEDS: FAMOTIDINE 20 MG TABLET PO SCH ×2 (09:28→20:53)
[2017-10-23] MEDS: NICOTINE 7 MG/24 HR PATCH.TD24 TD SCH (09:28)
[2017-10-23 13:54] VITALS: BP 108/63
[2017-10-23] MEDS: ENOXAPARIN 40 MG/0.4 ML SQ SCH (19:35)
[2017-10-23 19:40] VITALS: BP 118/77
[2017-10-24 01:44] VITALS: BP 103/68
[2017-10-24] MEDS: OXYcodone IR 5MG TABLET PO PRN ×3 (02:42→14:30)
[2017-10-24 05:31] LABS: HEMATOCRIT 25.9 % (39.2-51.8); HEMOGLOBIN 8.4 g/dL (13.7-18.0); WHITE BLOOD COUNT 9.1 x10^3/uL (3.4-10)
[2017-10-24 05:55] LABS: BLOOD UREA NITROGEN 22 mg/dL (7-18)
[2017-10-24 06:08] LABS: ANISOCYTOSIS 1+; DIFF TOTAL CELLS COUNTED 100 CELL DIFF; OVALOCYTES 1+; POLYCHROMASIA 1+; VERIFY COUNTS? YES
[2017-10-24] MEDS: ACETAMINOPHEN 500 MG TABLET PO SCH ×3 (06:40→18:07)
[2017-10-24] MEDS: ALBUTEROL/IPRATROPIUM 2.5MG/0.5MG, 3 ML NPPB SCH ×4 (07:00→20:10)
[2017-10-24 08:00] VITALS: BP 112/78
[2017-10-24] MEDS: FAMOTIDINE 20 MG TABLET PO SCH ×2 (08:02→20:37)
[2017-10-24] MEDS: NICOTINE 7 MG/24 HR PATCH.TD24 TD SCH (08:02)
[2017-10-24 14:00] VITALS: BP 95/66
[2017-10-24] MEDS: ENOXAPARIN 40 MG/0.4 ML SQ SCH (19:33)
[2017-10-24 21:12] VITALS: BP 93/56
[2017-10-25] MEDS: ACETAMINOPHEN 500 MG TABLET PO SCH ×5 (00:12→22:58)
[2017-10-25 03:56] VITALS: BP 110/73
[2017-10-25] MEDS: OXYcodone IR 5MG TABLET PO PRN ×3 (04:46→22:58)
[2017-10-25 05:43] LABS: HEMOGLOBIN 8.9 g/dL (13.7-18.0); WHITE BLOOD COUNT 8.2 x10^3/uL (3.4-10)
[2017-10-25 05:48] LABS: BLOOD UREA NITROGEN 24 mg/dL (7-18)
[2017-10-25] MEDS: ALBUTEROL/IPRATROPIUM 2.5MG/0.5MG, 3 ML NPPB SCH ×4 (07:00→18:46)
[2017-10-25 08:03] VITALS: BP 113/66
[2017-10-25] MEDS: FAMOTIDINE 20 MG TABLET PO SCH ×2 (08:29→21:06)
[2017-10-25] MEDS: NICOTINE 7 MG/24 HR PATCH.TD24 TD SCH (08:29)
[2017-10-25 12:49] VITALS: BP 102/64
[2017-10-25] MEDS: ENOXAPARIN 40 MG/0.4 ML SQ SCH (19:26)
[2017-10-25 19:30] VITALS: BP 106/72
[2017-10-26 02:46] VITALS: BP 111/61
[2017-10-26 04:15] LABS: HEMATOCRIT 24.1 % (39.2-51.8); HEMOGLOBIN 7.9 g/dL (13.7-18.0); WHITE BLOOD COUNT 7.2 x10^3/uL (3.4-10)
[2017-10-26] MEDS: OXYcodone IR 5MG TABLET PO PRN ×3 (05:03→20:44)
[2017-10-26] MEDS: ACETAMINOPHEN 500 MG TABLET PO SCH ×4 (05:03→23:55)
[2017-10-26] MEDS: ALBUTEROL/IPRATROPIUM 2.5MG/0.5MG, 3 ML NPPB SCH ×4 (07:00→19:17)
[2017-10-26 07:29] VITALS: BP 100/62
[2017-10-26] MEDS: NICOTINE 7 MG/24 HR PATCH.TD24 TD SCH (10:41)
[2017-10-26] MEDS: FAMOTIDINE 20 MG TABLET PO SCH ×2 (10:41→20:41)
[2017-10-26 15:20] VITALS: BP 100/64
[2017-10-26] MEDS: ENOXAPARIN 40 MG/0.4 ML SQ SCH (19:41)
[2017-10-26 21:16] VITALS: BP 111/69
[2017-10-27 03:06] LABS: HEMATOCRIT 23.6 % (39.2-51.8); HEMOGLOBIN 7.7 g/dL (13.7-18.0); WHITE BLOOD COUNT 7.3 x10^3/uL (3.4-10)
[2017-10-27 03:15] VITALS: BP 113/73
[2017-10-27] MEDS: ACETAMINOPHEN 500 MG TABLET PO SCH ×3 (04:38→18:09)
[2017-10-27] MEDS: OXYcodone IR 5MG TABLET PO PRN ×2 (04:38→14:11)
[2017-10-27] MEDS: ALBUTEROL/IPRATROPIUM 2.5MG/0.5MG, 3 ML NPPB SCH ×4 (06:50→20:25)
[2017-10-27 07:20] VITALS: BP 106/67
[2017-10-27] MEDS: FAMOTIDINE 20 MG TABLET PO SCH (10:52)
[2017-10-27] MEDS: NICOTINE 7 MG/24 HR PATCH.TD24 TD SCH (10:53)
[2017-10-27] MEDS ORDERED: TIOT18CA INH (16:20)
[2017-10-27] MEDS ORDERED: BUDE10.2 INH (16:20)
[2017-10-27] MEDS ORDERED: SULF-169 PO (16:20)
[2017-10-27] MEDS ORDERED: IPRA3AMP NPPB (16:22)
[2017-10-27] MEDS ORDERED: FOSFOMYCIN 3 GM PACKET PO ONE (16:30)
[2017-10-27] MEDS: SULFAMETH./TRIMETHOPRIM DS 800MG/160MG TABLET PO SCH ×2 (17:16→19:52)
[2017-10-27 17:43] VITALS: BP 108/60
[2017-10-27] MEDS: ENOXAPARIN 40 MG/0.4 ML SQ SCH (19:52)
[2017-10-27 20:06] VITALS: BP 105/66
[2017-10-28] MEDS: ACETAMINOPHEN 500 MG TABLET PO SCH ×2 (01:25→06:43)
[2017-10-28] MEDS: OXYcodone IR 5MG TABLET PO PRN ×2 (01:25→08:28)
[2017-10-28 03:56] VITALS: BP 103/65
[2017-10-28 06:18] LABS: BLOOD UREA NITROGEN 18 mg/dL (7-18)
[2017-10-28 06:41] LABS: HEMATOCRIT 24.4 % (39.2-51.8); HEMOGLOBIN 7.9 g/dL (13.7-18.0); WHITE BLOOD COUNT 7.3 x10^3/uL (3.4-10)
[2017-10-28 07:44] VITALS: BP 102/63
[2017-10-28] MEDS: SULFAMETH./TRIMETHOPRIM DS 800MG/160MG TABLET PO SCH (08:22)
[2017-10-28] MEDS: NICOTINE 7 MG/24 HR PATCH.TD24 TD SCH (08:22)
[2017-10-28] MEDS ORDERED: FOSFOMYCIN 3 GM PACKET PO ONE (09:00)
== END 2017-10-28 11:45 | disposition home or self-care (01) | DRG 163 ==
LOC: ED 20:55 → EDIP 23:18 → SUATTDRO 23:19 → ICU 10-05 02:52 → 4NOR 10-07 14:00 → CCU 10-15 20:01 → 4NOR 10-19 12:10
PROVIDERS: ADMIT Family Medicine; ATTEND Family Medicine
PROC: 5A09457 Assistance with Respiratory Ventilation, 24-96 Consecutive Hours, Continuous Positive Airway Pressure (ICD-10-PCS; principal; 2017-10-04)
PROC: 0W9B30Z Drainage of Left Pleural Cavity with Drainage Device, Percutaneous Approach (ICD-10-PCS; 2017-10-06)
PROC: 2W04XYZ Change Other Device on Chest Wall (ICD-10-PCS; 2017-10-11)
PROC: 0B5P4ZZ Destruction of Left Pleura, Percutaneous Endoscopic Approach (ICD-10-PCS; 2017-10-15)
PROC: 5A1945Z Respiratory Ventilation, 24-96 Consecutive Hours (ICD-10-PCS; 2017-10-15)
PROC: 0BH17EZ Insertion of Endotracheal Airway into Trachea, Via Natural or Artificial Opening (ICD-10-PCS; 2017-10-15)
PROC: 3E0L4GC Introduction of Other Therapeutic Substance into Pleural Cavity, Percutaneous Endoscopic Approach (ICD-10-PCS; 2017-10-15)
DX: T79.7XXA Traumatic subcutaneous emphysema, initial encounter (principal); J96.21 Acute and chronic respiratory failure with hypoxia; R57.9 Shock, unspecified; E43 Unspecified severe protein-calorie malnutrition; Z99.11 Dependence on respirator [ventilator] status; J44.0 Chronic obstructive pulmonary disease with (acute) lower respiratory infection; I27.20 Pulmonary hypertension, unspecified; E83.42 Hypomagnesemia; G93.41 Metabolic encephalopathy; J96.22 Acute and chronic respiratory failure with hypercapnia; J93.82 Other air leak; J44.1 Chronic obstructive pulmonary disease with (acute) exacerbation; J93.83 Other pneumothorax; N39.0 Urinary tract infection, site not specified; Z68.1 Body mass index [BMI] 19.9 or less, adult; N13.30 Unspecified hydronephrosis; J98.11 Atelectasis; X58.XXXA Exposure to other specified factors, initial encounter; B95.2 Enterococcus as the cause of diseases classified elsewhere; B96.89 Other specified bacterial agents as the cause of diseases classified elsewhere; D64.9 Anemia, unspecified; F17.200 Nicotine dependence, unspecified, uncomplicated; F41.9 Anxiety disorder, unspecified; Z99.81 Dependence on supplemental oxygen; Z51.5 Encounter for palliative care; I10 Essential (primary) hypertension; J20.9 Acute bronchitis, unspecified; Z16.21 Resistance to vancomycin; F32.9 Major depressive disorder, single episode, unspecified; Z88.0 Allergy status to penicillin; Z71.6 Tobacco abuse counseling; Z87.01 Personal history of pneumonia (recurrent); Z79.899 Other long term (current) drug therapy; Z59.0 Homelessness
CPT/HCPCS: 32557; 36415; 36600; 71010; 71250; 71260; 80048; 80053; 81001; 82040; 82565; 82803; 82805; 83735; 84100; 84478; 85025; 87040; 87070; 87077; 87081; 87086; 87186; 87205; 93005; 93321; 93325; 94002; 94003; 94640; 94660; 96361; 96374; C1729; J0171; J0456; J0696; J1650; J1956; J2020; J2250; J2704; J3010; J3480; J3490; J7613; J7620; C1751; C1769; C8924; C9113; J0330; J1940; J2270; J2310; J2930; J3475; J7030; J7050; J7512